=== PATIENT | female | born 1990 | race Caucasian/White ===

== ENCOUNTER 2018-11-16 15:57 | Emergency (ER) | payer MEDICAID ==
[2018-11-16] MEDS: ACETAMINOPHEN 500 MG TAB PO (21:01)
== END 2018-11-16 21:23 | disposition home or self-care (01) ==
LOC: FTE 15:57
DX: J32.9 Chronic sinusitis, unspecified (principal); J45.909 Unspecified asthma, uncomplicated
CPT/HCPCS: 99283; Z7502